=== PATIENT | female | born 1980 | race Caucasian/White ===

== ENCOUNTER 2021-05-29 18:07 | Emergency (ER) | payer BC, SELFPAY ==
--- NOTE | ~2021-05-29 | XR_ITS ---
EXAMINATION: XR chest 1V portable 05/29/2021 23:18 INDICATION: Leg edema and dyspnea PROCEDURE: 2 view chest COMPARISON: No prior studies for comparison. FINDINGS: The lungs are clear. The cardiomediastinal silhouette is within normal limits. There are no pleural effusions. There is no pneumothorax suspected. IMPRESSION: 1: NO ACUTE CARDIOPULMONARY DISEASE. Reviewed, dictated and finalized at location A.
[2021-05-29 19:23] VITALS: BP 146/119; PULSE 81; RESP 14; TEMP 36.8; O2SAT 100
[2021-05-29 19:36] LABS: Basophils Percent Auto 0.4 % (0.2-1.2); Eosinophils Absolute Auto 0.1 K/mm3 (0-0.3); Eosinophils Percent Auto 1.3 % (0-4.4); Hematocrit 38.1 % (37.0-47.0); Hemoglobin 11.9 g/dL (12.0-15.0); Immature Granulocyte Absolute 0.02 K/mm3 (0.00-0.031); Immature Granulocyte Percent A 0.2 % (0-0.5); Lymphocytes Absolute Auto 1.76 K/mm3 (0.9-3.2); Lymphocytes Percent Auto 18.5 % (18.3-44.2); Mean Corpuscular HGB Conc 31.2 g/dl (32-36); Mean Corpuscular Hemoglobin 26.1 pg (26-34); Mean Corpuscular Volume 83.6 fl (80-100); Mean Platelet Volume 9.8 fl (7.4-10.4); Monocytes Absolute Auto 0.5 K/mm3 (0.1-0.6); Monocytes Percent Auto 5.4 % (2.6-8.5); Neutrophils Absolute Auto 7.1 K/mm3 (1.3-6.7); Neutrophils Percent Auto 74.2 % (45.5-73.1); Platelet Count Result 314 k/mm3 (150-375); Red Blood Count 4.56 M/mm3 (4.2-5.4); Red Cell Distribution Width 13.2 % (11.5-14.5); White Blood Count 9.5 K/mm3 (4.5-10.0)
[2021-05-29 19:49] LABS: Anion Gap 5 mmol/L (8-16); Blood Urea Nitrogen 12 mg/dL (7-17); Calcium 8.8 mg/dL (8.4-10.2); Carbon Dioxide 29 mmol/L (22-30); Chloride 101 mmol/L (98-107); Estimated CRCL calculation 87 ml/min; Estimated Glomerular Filt Rate > 60; Glucose 277 mg/dL (65-105); Potassium 4.1 mmol/L (3.4-5.0); Sodium 135 mmol/L (137-145)
[2021-05-29 21:16] VITALS: BP 130/59; PULSE 88; RESP 18; TEMP 36.4; O2SAT 100
[2021-05-29 22:00] VITALS: BP 138/74; PULSE 78; RESP 14; O2SAT 99
--- NOTE | 2021-05-29 23:05 | ED.GENADULT ---
HPI - General Adult General Chief complaint: Skin/Abscess/Foreign Body Stated complaint: sent from urgent care with rash to legs Time Seen by Provider: 05/29/21 22:28 Source: patient and family Mode of arrival: ambulatory Limitations: no limitations History of Present Illness HPI narrative: Patient is 41 years old white female presents with swelling of lower legs bilaterally more on the left side, for over 1 month., History of lymphedema, with chronic edema of the lower extremity which she gets worse every now and then and get better every morning after she wake up. Patient started having new job with long hours of standing 1 month ago which high likely the underlying cause of the recent exacerbation of the leg edema. Patient is telling me that they have tons of work-up in the past including venous Doppler without significant results. Yesterday patient noticed rash at the ankle area bilaterally, went to urgent care, diagnosis of possible cellulitis, patient did not get the antibiotic prescription. Because was told if the rash gets worse go to the emergency room. Patient denies any itching or pain at the rash area. Patient had libertarian outdoors in the grass on 27 May, 2 days later started having the rash at the ankle area bilaterally, patient is telling me that insect bite is less likely because she did not feel anything. Patient had history of diabetes and lymphedema which probably affecting the sensation Related Data Home Medications Medication Instructions Recorded Confirmed clindamycin HCl 05/29/21 05/29/21 insulin lispro [Humalog U-100 05/29/21 Insulin] Allergies Allergy/AdvReac Type Severity Reaction Status Date / Time No Known Allergies Allergy Verified 05/29/21 21:25 Review of Systems Review of Systems: Narrative: CONSTITUTIONAL: Denies fever, chills, or sweats. EYES: Denies visual changes, redness, or discharge. ENT: Denies rhinorrhea, congestion, sore throat, or otalgia. CARDIOVASCULAR: Denies chest pain, palpitations, or edema. RESPIRATORY: Denies cough or dyspnea. GASTROINTESTINAL: Denies abdominal pain, nausea, vomiting, or diarrhea. GENITOURINARY: Denies dysuria or hematuria. SKIN: Denies rash or itching. MUSCULOSKELETAL: Denies back pain, joint pain, or myalgia. NEUROLOGIC: Denies headache, numbness, or weakness. PSYCHIATRIC: Denies anxiety or depression. [facility] Social History Social History Gender identity (if verbalized by the patient): Female Exam Narrative: Exam Narrative: General appearance: Well-developed, well-nourished Skin: Normal color, 2+ nonpitting edema lower extremity bilaterally, macules and red-patches, 2 mm up to 2 cm, at the ankles by laterally, none blanching with pressure, nontender, not warm to touch, Head: Normocephalic, nontraumatic Eyes: Clear conjunctiva ENT: Oropharynx normal, ears normal, nose normal Neck: Supple, nontender Chest and respiratory: Airway patent, no respiratory distress, no accessory muscle use Heart: Regular rate/rhythm Abdomen: Soft, nontender, no organomegaly, quiet bowel sounds Vascular: Normal peripheral pulses, normal capillary refill. Musculoskeletal: Normal range of motion, nontender back Neurologic: Alert and oriented ?3, [employer] is normal as tested, no gross motor deficit Course Course Emergency Course: Stable Vital Signs Vital signs: Vital Signs Temperature 36.8 C 05/29/21 19:23 Pulse Rate 81 05/29/21 19:23 Respiratory Rate 14 05/29/21 19:23 Blood Pressure 146/119 H 05/29/21 19:23 Pulse Oximetry 100 05/29/21 19:23 Temperature 36.7 C 05/29/21 23:53 Pulse Rate 76 05/29/21 23:53 Respiratory
[2021-05-29 23:53] VITALS: BP 120/90; PULSE 76; RESP 14; TEMP 36.7; O2SAT 99
[2021-05-30 00:03] LABS: INR 1.2; Prothrombin Time 14.8 Seconds (11.1-14.7)
[2021-05-30 00:04] LABS: Partial Thromboplastin Time 35.8 SECONDS (22.3-36.8)
[2021-05-30 00:06] LABS: Erythrocyte Sedimentation Rate 17 mm/hr (0-20)
[2021-05-30 00:57] LABS: NT Pro B Type Natriuretic Pept 53 pg/mL (5-100)
[2021-05-30 01:49] VITALS: BP 123/72; PULSE 79; RESP 16; TEMP 36.6; O2SAT 100
== END 2021-05-30 01:50 | disposition home or self-care (01) ==
PROVIDERS: Emergency Provider Emergency Medicine
DX: I89.0 Lymphedema, not elsewhere classified (principal); R21 Rash and other nonspecific skin eruption; E11.9 Type 2 diabetes mellitus without complications; Z79.4 Long term (current) use of insulin
CPT/HCPCS: 36415; 71045; 80048; 83880; 84443; 85025; 85610; 85652; 85730; 99283